=== PATIENT | male | born 1980 | race Caucasian/White ===

== ENCOUNTER 2016-09-29 06:49 | Emergency (ER) | payer OTHER, SELFPAY ==
--- NOTE | 2016-10-03 12:29 | ER ---
ADMIT: 09/29/2016 RM/LOC: ER [facility] MR#: [id number] [facility] [address], [place] [id number] [address] [facility] [place] [address] Emergency Room Report SEX: M AGE: 36 : 1980 DATE: 09/29/2016 ADDENDUM: This is a 36-year-old white male, coming with atypical chest pain. He has had it before. CBC, chemistry, chest x-ray, troponin, and D-dimer; all are negative. Dr. Ochoa initially saw him. I refer you to his T-sheet. Dr. Encarnacion I think has also followed him for this as well. At this time, discharged him with Motrin and then follow up with Dr. Encarnacion. CONDITION ON DISCHARGE: Good. Juan Tomlinson MD/ mukund JOB #: [id number] CC: Wilman Ochoa MD, Attending Physician London Encarnacion MD, Family Physician
== END 2016-09-29 08:50 | disposition home or self-care (01) ==
LOC: ER 06:49
DX: R07.89 Other chest pain (principal); F41.9 Anxiety disorder, unspecified

== ENCOUNTER → 2016-11-19 | Outpatient (CLI) | payer OTHER | END | disposition home or self-care (01) | LOC: RAD.S 17:36 | DX: M79.621 Pain in right upper arm (principal); R22.31 Localized swelling, mass and lump, right upper limb ==